=== PATIENT | female | born 1935 | race Caucasian/White ===

== ENCOUNTER 2022-11-27 06:42 | Observation (INO) ==
--- NOTE | 2022-11-02 16:12 | PAT Medication Instructions ---
Medication Instructions Date of Service November 02, 2022 Home Medications coenzyme Q10 100 mg capsule (CoQ-10) 100 mg PO QAM simvastatin 20 mg tablet 20 mg PO QPM acetaminophen 500 mg capsule 500 - 1,000 mg PO Q6H PRN amlodipine 5 mg tablet 5 mg PO QPM aspirin 81 mg tablet,delayed release 81 mg PO QPM atenolol 50 mg tablet 50 mg PO QPM calcium 600 mg capsule 600 mg PO QAM cholecalciferol (vitamin D3) 25 mcg (1,000 unit) tablet (Vitamin D3) 25 mcg PO QAM glucosam 750 mg-chondroi 100 mg-hyalur 1.65 mg-CF borate 108 mg tablet (Mapidy) 1 tab PO QAM magnesium oxide 400 mg PO QAM meloxicam 15 mg tablet 15 mg PO QAM ASK your surgeon for instructions meloxicam 15 mg tablet 15 mg PO QAM STOP taking 2 weeks before surgery (or as soon as possible if surgery is within 2 weeks) coenzyme Q10 100 mg capsule (CoQ-10) 100 mg PO QAM glucosam 750 mg-chondroi 100 mg-hyalur 1.65 mg-CF borate 108 mg tablet (Mapidy) 1 tab PO QAM DO NOT take the morning of surgery calcium 600 mg capsule 600 mg PO QAM cholecalciferol (vitamin D3) 25 mcg (1,000 unit) tablet (Vitamin D3) 25 mcg PO QAM magnesium oxide 400 mg PO QAM Take morning of surgery With a small sip of water, OTHERWISE NOTHING TO EAT OR DRINK AFTER MIDNIGHT: acetaminophen 500 mg capsule 500 - 1,000 mg PO Q6H PRN(if needed) Take evening before surgery simvastatin 20 mg tablet 20 mg PO QPM acetaminophen 500 mg capsule 500 - 1,000 mg PO Q6H PRN(if needed) amlodipine 5 mg tablet 5 mg PO QPM aspirin 81 mg tablet,delayed release 81 mg PO QPM (unless directed otherwise by surgeon) atenolol 50 mg tablet 50 mg PO QPM Other Notes If you have any questions please call us at [phone] or [phone] or [phone] or [phone]
--- NOTE | 2022-11-10 12:02 | Anesthesiology Consultation ---
Date of Service November 10, 2022 Assessment & Plan (1) Encounter for pre-operative examination: - anemia demonstrated on 10/26 and 11/10/22 labs. Awaiting PCP final clearance. PAT testing to be faxed to PCP. - cardiology clearance 11/09/22: "...BP elevated, pulse low. EKG independently reviewed and interpreted by myself today. Reveals NSR with PAC...R shoulder replacement...able to climb a flight of stairs without any issues...does get lightheaded at times. No syncope or LOC...swelling in the legs. Improves if she props her legs up...palpitations-improved. continue to monitor...cardiac clearance-very low risk (0.4%) based on Yury criteria. Is able to be cleared for low risk procedure from a cardiac standpoint..." - PCP clearance 10/26/22: "...preop...right shoulder replacement...complaints of generalized fatigue. labs will be updated for anemia...prior complaints of dyspnea on exertion with climbing usual steps at her home or otherwise...denies any acute chest pains or palpitations...preoperative clearance pending cardiac clearance..." - Outpatient joint assessment: Patient is currently scheduled for inpatient pathway. If re-evaluated and patient/surgeon requests outpatient pathway, patient is not recommended candidate for outpatient joint program from anesthesia standpoint. Chart Review Chart Review: Pending: Refer to Additional Notes / Consult section and Patient seen in Pre Admission Testing Teaching & Discussion Pre-Anesthesia Teaching/Discussion Notes: Instructed NPO after midnight before surgery, except medications with 15 cc of water. Medication instructions provided according to the PAT guidelines. History Surgery Operation Date: 11/27/22 07:15 Proposed Procedures p Right Reverse Total Shoulder Arthroplasty - Ziggy Millard MD Height/Weight Height: 5 ft 4 in Weight: 83.4 kg Allergies Allergy/AdvReac Type Severity Reaction Status Date / Time No Known Allergies Allergy Verified 11/02/22 15:06 Medications Home Medications Medication Instructions Recorded Confirmed Last Taken coenzyme Q10 100 mg capsule 100 mg PO QAM 02/26/18 11/02/22 02/25/18 07:00 (CoQ-10) simvastatin 20 mg tablet 20 mg PO QPM 02/26/18 11/02/22 03/06/18 21:00 acetaminophen 500 mg capsule 500 - 1,000 mg PO Q6H PRN Pain 11/02/22 11/02/22 Unknown amlodipine 5 mg tablet 5 mg PO QPM 11/02/22 11/02/22 Unknown aspirin 81 mg tablet,delayed 81 mg PO QPM 11/02/22 11/02/22 Unknown release atenolol 50 mg tablet 50 mg PO QPM 11/02/22 11/02/22 Unknown calcium 600 mg capsule 600 mg PO QAM 11/02/22 11/02/22 Unknown cholecalciferol (vitamin D3) 25 25 mcg PO QAM 11/02/22 11/02/22 Unknown mcg (1,000 unit) tablet (Vitamin D3) glucosam 750 mg-chondroi 100 1 tab PO QAM 11/02/22 11/02/22 Unknown mg-hyalur 1.65 mg-CF borate 108 mg tablet (Move Free Tizra) magnesium oxide 400 mg PO QAM 11/02/22 11/02/22 Unknown meloxicam 15 mg tablet 15 mg PO QAM 11/02/22 11/02/22 Unknown Past Medical History Medical History (Updated 11/10/22 @ 14:34 by Eulalia Doll PA-C) Anemia Hgb 10, PCP monitoring per records GERD (gastroesophageal reflux disease) OCCASIONAL - NO MEDS History of anemia History of COVID-19 2021>resolved Hyperlipidemia Hypertension controlled, stable per pt Ocular migraine last migraine was earlier today, states was the same as her typical ocular migraines and fully resolved Patient denies h/o stroke, seizures, heart attack, heart failure, DM, blood clots or blood transfusions. Exercise / Class Metabolic Activity II 4-5 Yardwork/Stairs/Walk up hill (denies chest discomfort or shortness of breath with 1 FOS) Past Family History Family History Grandmother Family history of diabetes mellitus PATERNAL Breast cancer PATERNAL Other No family history of adverse response to anesthesia Past Surgical History Surgical History (Updated 11/10/22 @ 12:46 by Eulalia Doll PA-C) History of appendectomy History of blepharoplasty bilat. History of breast biopsy rt>benign History of cataract surgery rt/left History of colonoscopy History of tonsillectomy and adenoidectomy History of tooth extraction History of total hip arthroplasty right/left 2018 SAB L3-L4 1 attempt. History of total knee replacement LEFT X2 right Past Anesthesia History No Hx of Anesthesia Complications and No Family Hx of Anesthesia Complications History of PONV No Hx of PONV and No Hx of Motion Sickness Social History Smoking Status: Never smoker Do You Dip or Chew Tobacco: No Hx Alcohol Use: No Hx Substance Use: No substance use type: does not use Review of Systems Snoring, denies witnessed apneas. Patient denies chest pain, shortness of breath, dyspnea on exertion, fever, chills, cough, wheezing, or palpitations. Physical Exam Vital Signs Vitals BP 121/70 P 64 TEMP 98 SP02 97% on RA RESP 17 Physical Patient resting comfortably in chair in NAD, alert and oriented, responding appropriately throughout visit Full cervical extension range of motion without pain TMD 3.5 finger breadths Mallampati Score 2 Dentition: removable lower and left upper side bridge, denies chipped or loose teeth, caps/crowns, implants Lungs: normal respiratory effort. Good air movement, clear throughout to auscultation, no adventitious breath sounds Cardiac: regular rate and rhythm, no murmurs noted Carotid arteries: negative bruit bilat Lab Results Anesthesia Preop Results Results Anesthesia Widget: WBC 5.29 K/ul (4.8-10.8) 11/10/22 Hgb 10.9 g/dl (12.0-16.0) L 11/10/22 Hct 34.2 % (37.0-47.0) L 11/10/22 Plt 265 K/uL (130-400) 11/10/22 PT 10.9 Seconds (9.0-12.0) 11/10/22 PTT 26.4 Seconds (21.0-31.0) 11/10/22 INR 1.0 (0.9-1.1) 11/10/22 Urine Color Yellow 11/10/22 Urine Appearance Clear (Clear) 11/10/22 Urine pH 5.0 (4.5-7.5) 11/10/22 Urine Specific Bagley 1.024 (1.000-1.030) 11/10/22 Urine Protein Negative (Negative) 11/10/22 Urine Glucose (UA) Negative (Negative) 11/10/22 Urine Ketones Trace (Negative) H 11/10/22 Urine Blood Negative (Negative) 11/10/22 Urine Nitrite Negative (Negative) 11/10/22 Urine Bilirubin Negative (Negative) 11/10/22 Urine Urobilinogen Negative (Negative) 11/10/22 Urine Leukocyte Esterase 2+ (Negative) H 11/10/22 Urine WBC (Auto) >30 /hpf (0-5) H 11/10/22 Urine RBC (Auto) 0-4 /hpf (0-4) 11/10/22 Urine Hyaline Casts (Auto) 1-5 /lpf (0-5) 11/10/22 Urine Epithelial Cells (Auto) >30 /lpf (0-5) H 11/10/22 Urine Bacteria (Auto) Negative (Negative) 11/10/22 Blood Type O Positive 11/10/22 Antibody Screen NEGATIVE 11/10/22 Testing Laboratory Results 10/26/2022 SODIUM: 139 POTASSIUM: 5 CHLORIDE: 105 CO2: 31 BUN: 18 CREATININE: 0.8 GLUCOSE: 108 Albumin: 4.1 Electrocardiogram Date: 11/10/22 NSR, rate [address] and T wave abnormality Chest X-Ray Date: 11/10/22 No acute process
--- NOTE | 2022-11-19 08:47 | History & Physical Report ---
Date of Service November 19, 2022 Assessment & Plan (1) Primary osteoarthritis, right shoulder: Plan: Treatment options discussed with patient. She is severe end-stage osteoarthritis right shoulder. She has failed conservative measures and like to proceed with surgical invention. Risks, benefits and alternatives to surgery including but not limited to infection, DVT, pain, stiffness, need for revision surgery, damage to blood vessels, damage to nerves, PE, , were discussed with the patient and they wish to proceed. Plan on right reverse total shoulder arthroplasty scheduled for the at [facility] with Dr. Millard. All questions answered. She will follow-up postop. History of Present Illness Chief Complaint: Right shoulder pain Primary Care Provider: Ravinder Aviles MD 87-year-old female with past medical history significant for hypertension, high cholesterol, anemia, ocular migraine who presents with ongoing right shoulder pain. Pain is interfering with her daily activities. She has failed conservative measures and would like to proceed with surgery. Patient denies headaches, sweats, fevers, chills, double vision, blurred vision, cough, sore throat, dysphagia, chest pain, sob, wheezing, n/v/d/c, numbness, tingling, fatigue, urinary symptoms, mood disorders. ROS positive for right shoulder pain and stiffness. Allergies Allergy/AdvReac Type Severity Reaction Status Date / Time No Known Allergies Allergy Verified 11/02/22 15:06 Home Medications Medication Instructions Recorded Confirmed Type coenzyme Q10 100 mg capsule 100 mg PO QAM 02/26/18 11/02/22 History (CoQ-10) simvastatin 20 mg tablet 20 mg PO QPM 02/26/18 11/02/22 History acetaminophen 500 mg capsule 500 - 1,000 mg PO Q6H PRN Pain 11/02/22 11/02/22 History amlodipine 5 mg tablet 5 mg PO QPM 11/02/22 11/02/22 History aspirin 81 mg tablet,delayed 81 mg PO QPM 11/02/22 11/02/22 History release atenolol 50 mg tablet 50 mg PO QPM 11/02/22 11/02/22 History calcium 600 mg capsule 600 mg PO QAM 11/02/22 11/02/22 History cholecalciferol (vitamin D3) 25 25 mcg PO QAM 11/02/22 11/02/22 History mcg (1,000 unit) tablet (Vitamin D3) glucosam 750 mg-chondroi 100 1 tab PO QAM 11/02/22 11/02/22 History mg-hyalur 1.65 mg-CF borate 108 mg tablet (Move Free Joint ozuke) magnesium oxide 400 mg PO QAM 11/02/22 11/02/22 History meloxicam 15 mg tablet 15 mg PO QAM 11/02/22 11/02/22 History Past Med/Surg History Medical History (Updated 11/19/22 @ 08:46 by Iain Giordano PA-C) Anemia Hgb 10, PCP monitoring per records GERD (gastroesophageal reflux disease) OCCASIONAL - NO MEDS History of anemia History of COVID-19 2021>resolved Hyperlipidemia Hypertension controlled, stable per pt Ocular migraine last migraine was earlier today, states was the same as her typical ocular migraines and fully resolved Surgical History (Updated 11/10/22 @ 12:46 by Eulalia Doll PA-C) History of appendectomy History of blepharoplasty bilat. History of breast biopsy rt>benign History of cataract surgery rt/left History of colonoscopy History of tonsillectomy and adenoidectomy History of tooth extraction History of total hip arthroplasty right/left 2017 SAB L3-L4 1 attempt. History of total knee replacement LEFT X2 right Family History Grandmother Family history of diabetes mellitus PATERNAL Breast cancer PATERNAL Other No family history of adverse response to anesthesia Social History Smoking Status: Never smoker Second Hand Exposure: Yes (sister smokes & will occas. visit); Do You Dip or Chew Tobacco: No; Hx Alcohol Use: No Hx Substance Use: No Preferred Language: Yakut Communication Ability: Effective Budget Clerk Required: No Beliefs That Will Affect Care: None marital status: Current Living Situation: Alone Feels Safe at Home: Yes Assistive Devices: Glasses Review of Systems All systems reviewed & are unremarkable except as noted in HPI & below Physical Exam Constitutional: well developed and well nourished; no acute distress Eyes: PERRL, conjunctivae normal, anicteric sclerae ENMT: external ear and nose normal, oropharynx normal Neck: trachea midline, no thyromegaly Respiratory: normal respiratory effort, lungs clear to auscultation Cardiovascular: RRR, no murmur, no edema Musculoskeletal: Right shoulder: Crepitation with range of motion. There is diffuse tenderness. She is active. Full range of motion. Forward lection of 80 degrees, abduction 80 degrees, external rotation 10 degrees. She has weakness with strength testing. 4+/5 external and internal rotation and abduction. Skin: no rashes, warm and dry Neurologic: patellar DTR's 2+ bilat, sensation intact Psychiatric: A+Ox3, euthymic affect Results & Data Diagnostic Findings Right shoulder radiographs demonstrate severe end-stage osteoarthritis right shoulder, [id number] glenohumeral joint. There is bone loss anterior glenoid. Calcifications of greater tuberosity consistent calcific tendinitis rotator cuff.
[~2022-11-27 06:42] MED LIST: ACETAMINOPHEN 500 MG TAB PO SCH; CeleBREX 200 MG CAP PO SCH; FAMOTIDINE 20 MG TAB PO SCH; GABAPENTIN 300 MG CAP PO SCH; LR 15ML/HR IV SCH; LR 60ML/HR IV SCH; METOCLOPRAMIDE HCL 10 MG TABLET PO SCH; TRANEXAMIC ACID 1,000 MG **IV Intra-op IV SCH; TRANEXAMIC ACID 1,000 MG **IV Pre-op IV SCH; ceFAZolin 2000MG 2,000 MG/15 ML SYR IV SCH; dexAMETHasone 4 MG TAB PO SCH
[2022-11-27] MEDS ORDERED: BUPIVACAINE 0.5 % 5 MG/1 ML PF 10ML VIAL ONE (07:05)
[2022-11-27] MEDS ORDERED: DEXAMETHASONE SOD INJ 4 MG/ML VIAL ONE (07:19)
[2022-11-27] MEDS ORDERED: LIDOCAINE 2% 2 ML VIAL/AMP(20MG/ML) INFIL ONE (07:19)
[2022-11-27] MEDS ORDERED: fentaNYL citrate PF 100 MCG/2 ML VIAL ONE (07:19)
[2022-11-27] MEDS ORDERED: PROPOFOL IV EMULSION 10 MG/ML 20 ML VIAL IV ONE (07:19)
[2022-11-27] MEDS ORDERED: ONDANSETRON INJ 2 MG/ML 2 ML VIAL ONE (07:19)
[2022-11-27] MEDS ORDERED: ROCURONIUM BROMIDE 10 MG/ML 5 ML VIAL IV ONE (07:19)
--- NOTE | 2022-11-27 07:27 | History & Physical Bridge Note ---
Date of Service November 27, 2022 History & Physical Bridge Note I have examined the patient, reviewed the History & Physical and in the interval since the performance of the History & Physical I have noted the following changes of clinical significance: no changes noted
[2022-11-27] MEDS ORDERED: fentaNYL citrate PF 100 MCG/2 ML VIAL IV PRN (08:18)
[2022-11-27] MEDS ORDERED: ONDANSETRON INJ 2 MG/ML 2 ML VIAL IV PRN ×2 (08:18→13:01)
[2022-11-27] MEDS ORDERED: ePHEDrine sulfate 50 MG/ML AMP IV PRN (08:18)
[2022-11-27] MEDS ORDERED: ATROPINE SULFATE 0.1 MG/ML 10ML SYR IV PRN (08:18)
[2022-11-27] MEDS ORDERED: SUGAMMADEX SODIUM 200 MG/2 ML VIAL IV ONE (11:43)
--- NOTE | 2022-11-27 12:01 | Operative Report ---
Post Operative Report Pre & Post Diagnosis Operation Date: 11/27/22 09:25 Pre-Op Diagnosis: Right Shoulder Osteoarthritis, calcific tendinitis, rotator cuff tendinopathy Post-Op Diagnosis: Right Shoulder Osteoarthritis, calcific tendinitis, rotator cuff tendinopathy, b iceps tendinopathy, loose bodies. I identified the patient and participated in the time-out.: Yes Procedure Operation Date: 11/27/22 09:25 Actual Procedures p Right Reverse Total Shoulder Arthroplasty(Right), excision calcium deposits, biceps tenodesis, excision loose bodies including large subcoracoid loose bodies.- Ziggy Millard MD Surgeon Ziggy Millard MD Scale Expert Portillo TAO Estimated Blood Loss 40 Findings Consistent with Post-Op Diagnosis Specimens Humeral head Drains 2 Hemovac Anesthesia Type General Regional Complications none Disposition Disposition: Recovery Room Indications 87-year-old female chronic progressive right shoulder pain failed conservative management. Patient has end-stage osteoarthritis with some bone loss on the glenoid side with type a concentric type wear pattern. Patient has large osteophytes. Patient has calcific tendinitis rotator cuff but has intact ro tator cuff but rotator cuff tendinopathy. Description of Procedure The patient was taken to the operating room and anesthetized under regional block and general anesthetic. The patient was positioned on the operating table in a 30 beachchair position with a towel roll under the medial border of the right scapula. The arm was draped free to be able to manipulate the shoulder as needed. The right upper extremity was prepped and draped in usual sterile fashion. Exam demonstrated 10 degrees external rotation with arm at side. 70 degrees abduction. 95 degrees forward flexion. [id number] crepitation.. An anterior deltopectoral approach was performed. A longitudinal incision was made in the deltopectoral interval. The skin was incised sharply. Subcutaneous flaps were elevated off the fascia. The cephalic vein was dissected out and retracted lateral with the deltoid. The clavipectoral fascia was divided at the lateral margin of the conjoined tendon and extended up to the CA ligament. The following findings were noted: The subscapularis tendon was intact. The biceps sheath had tenosynovitis extending from glenohumeral joint. The supraspinatus tendon had rotator cuff tendinopathy and thinning with calcium deposits on the bursal surface of the rotator cuff.. The upper centimeter of the pectoralis was released for inferior exposure. The biceps tendon findings demonstrated intact biceps tendon in the groove as the biceps observe more proximally and intra-articularly was widened with tendinopathy and there was tenosynovitis around the biceps.. the biceps tendon was tenodesed to the pectoralis tendon with #2 FiberWire. The proximal biceps was resected. The subscapularis tendon was taken down off the lesser tuberosity using a subperiosteal dissection. A #1 Vicryl traction suture was placed into the free end of the subscapularis tendon and capsule. The subscapular muscle fibers were split longitudinally at the level of the circumflex vessels. The circumflex vessels were identified and tied off with silk ties and divided laterally. A Kitner elevator was used to free up the inferior fibers of the subscapularis off of the capsule. The axillary nerve was identified with a tug test and protected with a blunt Valeriy retractor between the nerve and the capsule. The subscapularis tendon was then taken down off of the lesser tuberosity subperiosteally and subperiosteal dissection was performed along the neck of the humerus as the arm is gradually actually rotated exposing the humeral head. Retractors were readjusted and the inferior osteophytes were all resected using an artist chisel. There were very large irregular inferior osteophytes also lateral and superior osteophytes which were resected with a rongeur and artist chisel as well. A Corley elevator was used to assist in releasing the capsule of the neck of the humerus. The capsule was divided with Barker scissors down to the glenoid released off the anterior glenoid and the rotator interval was released to meet the capsular release and a 360 release of the subscapularis was accomplished. The supraspinatus tendon was released and the calcium deposits were resected the infraspinatus and teres Minor were preserved. A Fukuda retractor was placed into the joint retracting the humeral head posterior. Glenoid findings demonstrated concentric wear with large posterior osteophytes that were resected. There was complete eburnated bone with no articular cartilage remaining. There were large subcoracoid loose bodies which were removed. There were over 2 cm in size which were connected together with 2 large loose bodies.. The labrum and biceps tendon were resected. an anterior-inferior and posterior inferior capsular release were performed with electrocautery and a Corley elevator on bone with the axillary nerve protected inferiorly by the retractor. Attention was then taken to the humeral preparation. Humeral head was flattened with some bone loss and also a complete eburnated bone. The cutting guide was placed into the humeral head. It was positioned at 20 of retroversion. Oscillating saw was used to resect the humeral head giving the cut above the level of the posterior rotator cuff insertion site. The humerus was then prepared for the stem. I used the ascend flex stem from [employer]. The sizing broaches were used followed by trial broaches up to a size 6B long PTC stem which had the appropriate fit and fill. The appropriate sized cut protector was placed. The humerus was then retracted posterior to the glenoid. The glenoid was sized for a 25 mm baseplate. We had a blueprint CT scan preop templating with custom guide. The guide was positioned and the central pin was placed in the appropriate position. The reamer for the 25 mm baseplate was used. The reamer for the central boss was used. The depth gauge was used to measure for the central screw. The 25 mm perform baseplate with a 30 mm x 6.5 mm central screw was screwed into position. The base plate was transfixed with superior and inferior locking screws and anterior and posterior compression screws with stable fixation. Bone quality of the humerus was relatively soft and the bone quality the glenoid was hard. The fan reamer was used for the 39 millimeter glenoid sphere. After irrigation the 39 mm symmetrical glenoid sphere was impacted onto the baseplate and the security screw was tightened. Attention was taken back to the humerus. The cut protector was removed and the +0 high offset humeral tray trial was assembled to the trial stem rotated appropriately to get bony coverage and then screwed in position. A trial reduction was performed. A 9 mm x 39 mm reversed trial insert demonstrated good stability and no shuck. The trials were removed. 3 drill holes are made into the harder bone in the bicipital groove area and 3 #5 FiberWire sutures were placed transosseously. The canal was irrigated with pulsatile saline solution. The final component was assembled. The final component was [employer] ascend Flex size 6B long PTC stem. This was then impacted into the humerus with a tight press-fit. It was reduced to the glenoid sphere. Stability was verified. Subscapularis was repaired with the #5 FiberWire sutures using Eligio-Gregorio suture technique. Lateral row soft tissue repair was performed with #2 FiberWire [id number] sutures. The pectoralis was repaired with #2 FiberWire [id number] sutures reinforcing the biceps tendon tenodesis. The arm was taken through a range of motion which demonstrated 130 degrees forward flexion 90 degrees abduction and 40 degrees external rotation without any tension on repair. The implant was stable through the range of motion tested. The wound was copiously irrigated. 2 Hemovac drains were placed. The deltopectoral interval was closed with [id number] #1 Vicryl sutures. The subcutaneous tissues were closed with 2-0 Vicryl sutures. The ski n was closed with dusty. Sterile dressings were applied and a shoulder immobilizer. Portillo TAO, my physician data analysis assistant assisted in the procedure to the entire procedure including patient positioning arm positioning prepping and draping soft tissue retraction instrument management suture management and performed the subcutaneous and skin closure and will participate in the postoperative care of the patient. I attest to the content of the Intraoperative Record and any orders documented therein. Any exceptions are noted below.
--- NOTE | 2022-11-27 12:30 | XRay Report ---
XR shoulder LT min 2V routine HISTORY: 87 years-old Female Post shoulder surgery right shoulder arthroplasty COMPARISON: 11/10/2022 TECHNIQUE: 2 views of the right shoulder FINDINGS: Reverse right shoulder total joint arthroplasty demonstrates satisfactory alignment. Overlying skin s taples are present along with expected postoperative soft tissue swelling and surgical drainage silvia ter. No acute fracture or unexpected opaque foreign body identified. Punctate radiodense foci are not ed superolateral to the shoulder suggestive of calcifications. IMPRESSION: Satisfactory alignment of the right shoulder arthroplasty. ACT 112: Negative or not required by law. The above report was generated using voice recognition software. It may contain grammatical, syntax o r spelling errors. Electronically signed by: Jose Dove M.D. 11/27/2022 12:29 PM
[2022-11-27] MEDS ORDERED: bisacodyL 10 MG SUPP PR PRN (13:01)
[2022-11-27] MEDS ORDERED: oxyCODONE HCL IR 5 MG TAB (IMMEDIATE RELEASE) PO PRN (13:01)
[2022-11-27] MEDS ORDERED: NALOXONE HCL 0.4 MG/1 ML VIAL/CARP IV PRN (13:01)
[2022-11-27] MEDS ORDERED: METOCLOPRAMIDE HCL INJ 5 MG/ML 2 ML VIAL IV PRN (13:01)
[2022-11-27] MEDS ORDERED: HYDROmorphone INJ 0.5 MG/0.5 ML SYR IV PRN (13:01)
[2022-11-27] MEDS ORDERED: MAGNESIUM HYDROXIDE SUSP 30 ML UDC PO PRN (13:01)
[2022-11-27] MEDS: SODIUM CHLORIDE 0.9% 1000ML 1,000 ML IV SCH ×2 (13:38→23:17)
[2022-11-27] MEDS: ACETAMINOPHEN 500 MG TAB PO SCH ×2 (14:19→21:55)
--- NOTE | 2022-11-27 15:29 | Hospitalist Consultation ---
Date of Consultation November 27, 2022 Assessment & Plan (1) Primary osteoarthritis, right shoulder: s/p right reverse total shoulder arthroplasty Pain/bowel/VTE management per primary orthopedic team (2) Systolic murmur: Recommended her to follow up with her PCP regarding this. (3) Hyperlipidemia: Continue simvastatin (4) Hypertension: Continue atenolol with hold parameters Agree with holding amlodipine until post op day 1 Plan Thank you for the consult. We will follow along with you with post op labs to be performed tomorrow. History of Present Illness Reason for Consultation: post op management Attending Physician: Ziggy Millard MD History of Present Illness Tanesha Velez is an 87 year old female POD#0 from right reverse ttal shoulder arthroplasty. Estimated blood loss 40ml. No post operative concerns or questions from the patient. No history of heart attack or stroke. Allergies Allergy/AdvReac Type Severity Reaction Status Date / Time No Known Allergies Allergy Verified 11/27/22 07:19 Home Medications Medication Instructions Recorded Confirmed Type coenzyme Q10 100 mg capsule 100 mg PO QAM 02/26/18 11/27/22 History (CoQ-10) simvastatin 20 mg tablet 20 mg PO QPM 02/26/18 11/27/22 History acetaminophen 500 mg capsule 500 - 1,000 mg PO Q6H PRN Pain 11/02/22 11/27/22 History amlodipine 5 mg tablet 5 mg PO QPM 11/02/22 11/27/22 History aspirin 81 mg tablet,delayed 81 mg PO QPM 11/02/22 11/27/22 History release atenolol 50 mg tablet 50 mg PO QPM 11/02/22 11/27/22 History calcium 600 mg capsule 600 mg PO QAM 11/02/22 11/27/22 History cholecalciferol (vitamin D3) 25 25 mcg PO QAM 11/02/22 11/27/22 History mcg (1,000 unit) tablet (Vitamin D3) glucosam 750 mg-chondroi 100 1 tab PO QAM 11/02/22 11/27/22 History mg-hyalur 1.65 mg-CF borate 108 mg tablet (CloudSponge) magnesium oxide 400 mg PO QAM 11/02/22 11/27/22 History meloxicam 15 mg tablet 15 mg PO QAM 11/02/22 11/27/22 History acetaminophen 500 mg tablet 1,000 mg PO Q8 #60 tabs 11/27/22 Rx (Tylenol Extra Strength) Patient History Medical History (Updated 11/28/22 @ 06:40 by Barrera Steinberg MD) Anemia Hgb 10, PCP monitoring per records GERD (gastroesophageal reflux disease) OCCASIONAL - NO MEDS History of anemia History of COVID-19 2021>resolved Hyperlipidemia Hypertension controlled, stable per pt Ocular migraine last migraine was earlier today, states was the same as her typical ocular migraines and fully resolved Surgical History History of appendectomy History of blepharoplasty bilat. History of breast biopsy rt>benign History of cataract surgery rt/left History of colonoscopy History of tonsillectomy and adenoidectomy History of tooth extraction History of total hip arthroplasty right/left 2017 SAB L3-L4 1 attempt. History of total knee replacement LEFT X2 right Family History Grandmother Family history of diabetes mellitus PATERNAL Breast cancer PATERNAL Other No family history of adverse response to anesthesia Social History Smoking Status: Never smoker Second Hand Exposure: Yes (sister smokes & will occas. visit); Do You Dip or Chew Tobacco: No; Hx Alcohol Use: No Hx Substance Use: No Preferred Language: Latvian Communication Ability: Effective Naval Architect Required: No Beliefs That Will Affect Care: None marital status: Current Living Situation: Alone Feels Safe at Home: Yes Safety Concerns: Feels Safe At This Time Assistive Devices: None Assistive Devices Comment: reading glasses, partial plates Review of Systems Review of Systems: All systems reviewed & are unremarkable except as noted in HPI & below Physical Exam Constitutional: WD/WN, vitals as above Eyes: PERRL, conjunctivae normal, anicteric sclerae Respiratory: normal respiratory effort, lungs clear to auscultation Cardiovascular: Rate/Rhythm: regular rate and regular rhythm Heart Sounds: + murmur (3/6 RUSB YOMI) Extremities: normal capillary refill; no calf tenderness and no pedal edema Gastrointestinal (Abdomen): normal bowel sounds, soft, nontender, no hepatosplenomegaly Skin: no rashes, warm and dry Neurologic: awake; not confused Psychiatric: A+Ox3, euthymic affect Results & Data Results & Data Vital Signs (Past 12 Hours) Vital Signs Temp Pulse Pulse Resp BP Pulse Ox O2 Del Method 11/27/22 15:01 36.2 C L 70 16 126/62 93 Room Air 11/27/22 14:01 36.3 C L 67 16 124/65 93 Room Air 11/27/22 13:31 36.4 C L 79 16 131/77 92 Room Air 11/27/22 13:00 36.3 C L 70 16 131/71 92 Room Air 11/27/22 12:30 36.4 C L 69 19 139/65 96 Oxymask 11/27/22 12:20 65 25 H 130/67 99 Oxymask 11/27/22 12:10 69 23 136/66 97 Oxymask 11/27/22 12:00 36.1 C L 71 16 136/70 97 Oxymask 11/27/22 07:15 36.5 C 51 L 18 153/96 H 98 Room Air O2 Flow Rate 11/27/22 15:01 11/27/22 14:01 11/27/22 13:31 11/27/22 13:00 11/27/22 12:30 2 11/27/22 12:20 5 11/27/22 12:10 7 11/27/22 12:00 9 11/27/22 07:15 PG Care Time/CCT Total # of Minutes Spent Total Time Spent with Patient: Total time spent is greater than 50% in coordination of care (as documented) at patient's floor/unit and/or counseling patient: Coding Level of Care Code 58683 IN/OBS CONSULT LVL 3,45M Diagnoses Primary osteoarthritis, right shoulder M19.011 Systolic murmur R01.1 Hyperlipidemia E78.5 Hypertension I10
--- NOTE | 2022-11-27 15:40 | Anesthesiology Progress Note ---
Date of Service November 27, 2022 Anesthesia Post Procedure Vital Signs Vital Signs: Temp Pulse Pulse Resp BP Pulse Ox O2 Del Method 11/27/22 15:01 36.2 C L 70 16 126/62 93 Room Air 11/27/22 14:01 36.3 C L 67 16 124/65 93 Room Air 11/27/22 13:31 36.4 C L 79 16 131/77 92 Room Air 11/27/22 13:00 36.3 C L 70 16 131/71 92 Room Air 11/27/22 12:30 36.4 C L 69 19 139/65 96 Oxymask 11/27/22 12:20 65 25 H 130/67 99 Oxymask 11/27/22 12:10 69 23 136/66 97 Oxymask 11/27/22 12:00 36.1 C L 71 16 136/70 97 Oxymask 11/27/22 07:15 36.5 C 51 L 18 153/96 H 98 Room Air O2 Flow Rate 11/27/22 15:01 11/27/22 14:01 11/27/22 13:31 11/27/22 13:00 11/27/22 12:30 2 11/27/22 12:20 5 11/27/22 12:10 7 11/27/22 12:00 9 11/27/22 07:15 Transfer of Care Handoff Completed per policy Notes Mental Status: alert / awake / arousable and participated in evaluation Patient Amnestic to Procedure: Yes Nausea / Vomiting: adequately controlled Pain: adequately controlled Airway Patency, RR, SpO2: stable & adequate BP & HR: stable & adequate Hydration State: stable & adequate Anesthetic Complications: no major complications apparent and Pt Satisfied with anesthetic care
[2022-11-27] MEDS: ceFAZolin 2000MG 2,000 MG/15 ML SYR IV SCH (17:38)
[2022-11-27] MEDS: DOCUSATE SODIUM 100 MG CAP PO SCH (20:11)
[2022-11-27] MEDS ORDERED: SENNA 8.6 MG TAB PO SCH (21:00)
[2022-11-27] MEDS ORDERED: ASPIRIN 81 MG ECTAB PO SCH (21:00)
[2022-11-27] MEDS ORDERED: ATENOLOL 50 MG TABLET PO SCH (21:00)
[2022-11-27] MEDS ORDERED: SIMVASTATIN 20 MG TAB PO SCH (21:00)
[2022-11-28] MEDS: ceFAZolin 2000MG 2,000 MG/15 ML SYR IV SCH (01:38)
[2022-11-28] MEDS: ACETAMINOPHEN 500 MG TAB PO SCH (05:05)
[2022-11-28 07:33] LABS: Basophils # (auto) 0.01 K/uL (0-0.2); Basophils % (auto) 0.1 %; Hematocrit (blood only) 33.6 % (37.0-47.0); Hemoglobin 10.8 g/dl (12.0-16.0); Immature Granulocytes # (auto) 0.05 K/uL (0.01-0.20); Immature Granulocytes % (auto) 0.4 %; Lymphocytes # (auto) 1.23 K/uL (1.2-3.4); Lymphocytes % (auto) 8.9 %; Mean Corpuscular Hemoglobin 28.7 pg (25.0-34.0); Mean Corpuscular Hgb Conc 32.1 g/dL (32.0-36.0); Mean Corpuscular Volume 89.4 fL (80.0-100.0); Mean Platelet Volume 10.8 fL (9.4-12.4); Monocytes # (auto) 0.31 K/uL (0.11-0.59); Monocytes % (auto) 2.3 %; Neutrophils # (auto) 12.17 K/uL (1.40-6.50); Neutrophils % (auto) 88.3 %; Platelet Count 310 K/uL (130-400); RDW Coefficient of Variation 12.7 % (11.5-14.5); RDW Standard Deviation 41.2 fL (36.4-46.3); Red Blood Count 3.76 M/uL (4.20-5.40); White Blood Count 13.77 K/ul (4.8-10.8)
[2022-11-28 08:00] LABS: BUN Creatinine Ratio 20.5 (10-20); Calcium 8.9 mg/dl (8.6-10.3); Creatinine Clr Calc Pharmacy 49.5 ml/min; Est GFR (African American) 73.5 ml/min; Est GFR (Non-African American) 63.4 ml/min; Potassium 4.4 mmol/L (3.5-5.1)
[2022-11-28] MEDS ORDERED: MAGNESIUM OXIDE 400 MG TAB PO SCH (09:00)
[2022-11-28] MEDS ORDERED: CHOLECALCIFEROL 1,000 UNITS 25 MCG TAB PO SCH (09:00)
[2022-11-28] MEDS ORDERED: CALCIUM 600MG + VIT D 400 IU TAB PO SCH (09:00)
[2022-11-28] MEDS ORDERED: MULTIVITAMIN TAB PO SCH (09:00)
[2022-11-28] MEDS: DOCUSATE SODIUM 100 MG CAP PO SCH (09:05)
--- NOTE | 2022-11-28 09:30 | Orthopedic Progress Note ---
Date of Service November 28, 2022 Assessment & Plan (1) Primary osteoarthritis, right shoulder: Plan: Postop day 1 status post right reverse total shoulder arthroplasty PT/OT protocols. Nonweightbearing right upper extremity Plan for dressing change and Hemovac removal. DVT prophylaxis-aspirin p.o. daily, SCDs Pain management as written. DC planning-patient is planning for discharge to home with outpatient PT. Plan for discharge to home today. Admission and Anticipated Discharge Date Admission Date: November 27, 2022 Subjective Postop day 1 Patient sitting up in bed awake and alert. Family is present. Patient feels well. Pain is controlled. She is hoping to go home today Physical Exam Physical Exam: Dressings are clean, dry, and intact. Sling is in place. She continues to have good pain control from her nerve block. She has good range of motion of her fingers at this time but continues to have weakness as far as strength with her hand. She does have range of motion of her wrist. She continues to have some decreased sensation mainly in the thumb and index fingers with [id number] in the remaining 3. Capillary refill is less than 2 seconds. Results & Data Vital Signs (Past 12 Hours) Vital Signs Temp Pulse Pulse Resp BP Pulse Ox O2 Del Method 11/28/22 08:06 36.9 C 64 16 125/70 92 Room Air 11/28/22 03:16 36.7 C 68 16 138/76 93 Room Air 11/27/22 22:55 36.6 C 73 16 131/78 92 Room Air Laboratory Results Laboratory Results WBC 13.77 K/ul (4.8-10.8) H 11/28/22 06:34 RBC 3.76 M/uL (4.20-5.40) L 11/28/22 06:34 Hgb 10.8 g/dl (12.0-16.0) L 11/28/22 06:34 Hct 33.6 % (37.0-47.0) L 11/28/22 06:34 MCV 89.4 fL (80.0-100.0) 11/28/22 06:34 MCH 28.7 pg (25.0-34.0) 11/28/22 06:34 MCHC 32.1 g/dL (32.0-36.0) 11/28/22 06:34 RDW Std Deviation 41.2 fL (36.4-46.3) 11/28/22 06:34 RDW Coeff of Trevon 12.7 % (11.5-14.5) 11/28/22 06:34 Plt Count 310 K/uL (130-400) 11/28/22 06:34 MPV 10.8 fL (9.4-12.4) 11/28/22 06:34 Immature Gran % (Auto) 0.4 % 11/28/22 06:34 Neut % (Auto) 88.3 % 11/28/22 06:34 Lymph % (Auto) 8.9 % 11/28/22 06:34 [place] % (Auto) 2.3 % 11/28/22 06:34 Eos % (Auto) 0.0 % 11/28/22 06:34 Baso % (Auto) 0.1 % 11/28/22 06:34 Neut # (Auto) 12.17 K/uL (1.40-6.50) H 11/28/22 06:34 Lymph # (Auto) 1.23 K/uL (1.2-3.4) 11/28/22 06:34 [place] # (Auto) 0.31 K/uL (0.11-0.59) 11/28/22 06:34 Eos # (Auto) 0.00 K/uL (0-0.50) 11/28/22 06:34 Baso # (Auto) 0.01 K/uL (0-0.2) 11/28/22 06:34 Immature Gran # (Auto) 0.05 K/uL (0.01-0.20) 11/28/22 06:34 Sodium 135 mmol/L (136-145) L 11/28/22 06:34 Potassium 4.4 mmol/L (3.5-5.1) 11/28/22 06:34 Chloride 105 mmol/L (98-107) 11/28/22 06:34 Carbon Dioxide 24 mmol/L (21-32) 11/28/22 06:34 Anion Gap 6 (3-11) 11/28/22 06:34 BUN 17 mg/dl (6-23) 11/28/22 06:34 Creatinine 0.83 mg/dl (0.6-1.2) 11/28/22 06:34 Est Cr Clr Drug Dosing 49.5 ml/min 11/28/22 06:34 Est GFR ( Amer) 73.5 ml/min 11/28/22 06:34 Est GFR (Non-Af Amer) 63.4 ml/min 11/28/22 06:34 BUN/Creatinine Ratio 20.5 (10-20) H 11/28/22 06:34 Glucose 166 mg/dl (70-99(Fasting)) H 11/28/22 06:34 Calcium 8.9 mg/dl (8.6-10.3) 11/28/22 06:34 Impressions Shoulder X-Ray 11/27/22 12:05 XR shoulder LT min 2V routine HISTORY: 87 years-old Female Post shoulder surgery right shoulder arthroplasty COMPARISON: 11/10/2022 TECHNIQUE: 2 views of the right shoulder FINDINGS: Reverse right shoulder total joint arthroplasty demonstrates satisfactory alignment. Overlying skin dusty are present along with expected postoperative soft tissue swelling and surgical drainage catheter. No acute fracture or unexpected opaque foreign body identified. Punctate radiodense foci are noted superolateral to the shoulder suggestive of calcifications. IMPRESSION: Satisfactory alignment of the right shoulder arthroplasty. ACT 112: Negative or not required by law. The above report was generated using voice recognition software. It may contain grammatical, syntax or spelling errors. Electronically signed by: Jose Dove M.D. 11/27/2022 12:29 PM
--- NOTE | 2022-11-28 13:16 | Hospitalist Progress Note ---
Date of Service November 28, 2022 Assessment & Plan (1) Primary osteoarthritis, right shoulder: Plan: s/p right reverse total shoulder arthroplasty. Postoperative day #1. Management per primary team (2) Systolic murmur: Plan: Recommended her to follow up with her PCP regarding this. (3) Hyperlipidemia: Plan: Stable. Continue simvastatin (4) Hypertension: Plan: Stable. Continue atenolol. Resume amlodipine at discharge Plan Home today, November 28, per primary service. She is medically stable Admission and Anticipated Discharge Date Admission Date: November 27, 2022 Subjective Alert and oriented. No apparent distress. Vital signs stable. Laboratory studies reviewed and unremarkable. Postoperative day #1 after right shoulder arthroplasty Review of Systems Review of Systems: Constitutional-no fever or chills ENT-no blurred vision, no double vision, no epistaxis, no sore throat Respiratory-no cough, no wheezing, no shortness of breath Cardiac-no palpitations, no chest pain, no syncope GI-no nausea, vomiting, diarrhea, melena, hematochezia -no urinary retention, no urinary incontinence, no dysuria, no hematuria Musculoskeletal-postoperative right shoulder discomfort and limited range of motion as expected Skin-no bruising, no rashes, no pruritus Neuro-no isolated weakness, no paresthesia, no weakness Psych-no depression, no anxiety Physical Exam Physical Exam: General-alert and oriented x3, no fevers, no chills HEENT-head atraumatic and normocephalic, pupils equal and reactive to light, extraocular muscles intact Neck-no lymphadenopathy or thyromegaly, trachea midline Chest-clear to auscultation percussion. No rales wheezing or rhonchi Cardiac-regular rate and rhythm, normal S1 and S2 Abdomen-normal bowel sounds, nontender, no hepatosplenomegaly Extremities-drain remains in place in the right shoulder. This will be removed prior to discharge. Surgical site right shoulder clean and dry Neuro-cranial nerves II through XII intact, motor and sensory function within normal limits, strength symmetrical , no focal deficits Psych-normal affect, normal mood Results & Data Results & Data Vital Signs (Past 12 Hours) Vital Signs Temp Pulse Pulse Resp BP Pulse Ox O2 Del Method 11/28/22 11:24 36.9 C 64 68 16 125/70 92 11/28/22 08:06 36.9 C 64 16 125/70 92 Room Air 08/22/23 03:16 36.7 C 68 16 138/76 93 Room Air Laboratory Results 11/28/22 06:34 11/28/22 06:34 PG Care Time/CCT Total # of Minutes Spent Total Time Spent with Patient: Total time spent is greater than 50% in coordination of care (as documented) at patient's floor/unit and/or counseling patient: Coding Level of Care Code 13780 SUB INP/OBS CARE 2/35MIN Diagnoses Primary osteoarthritis, right shoulder M19.011 Systolic murmur R01.1 Hyperlipidemia E78.5 Hypertension I10
--- NOTE | 2022-11-28 19:32 | Discharge Summary ---
Date of Service November 28, 2022 Admission HPI Per Admitting Provider 87-year-old female with past medical history significant for hypertension, high cholesterol, anemia, ocular migraine who presents with ongoing right shoulder pain. Pain is interfering with her daily activities. She has failed conservative measures and would like to proceed with surgery. Patient denies headaches, sweats, fevers, chills, double vision, blurred vision, cough, sore throat, dysphagia, chest pain, sob, wheezing, n/v/d/c, numbness, tingling, fatigue, urinary symptoms, mood disorders. ROS positive for right shoulder pain and stiffness. Admission Exam Per Admitting Provider Constitutional: well developed and well nourished; no acute distress Eyes: PERRL, conjunctivae normal, anicteric sclerae ENMT: external ear and nose normal, oropharynx normal Neck: trachea midline, no thyromegaly Respiratory: normal respiratory effort, lungs clear to auscultation Cardiovascular: RRR, no murmur, no edema Musculoskeletal: Right shoulder: Crepitation with range of motion. There is diffuse tenderness. She is active. Full range of motion. Forward lection of 80 degrees, abduction 80 degrees, external rotation 10 degrees. She has weakness with strength testing. 4+/5 external and internal rotation and abduction. Skin: no rashes, warm and dry Neurologic: patellar DTR's 2+ bilat, sensation intact Psychiatric: A+Ox3, euthymic affect Principal Diagnosis right shoulder osteoarthritis Discharge Exam Dressings are clean, dry, and intact. Sling is in place. She continues to have good pain control from her nerve block. She has good range of motion of her fingers at this time but continues to have weakness as far as strength with her hand. She does have range of motion of her wrist. She continues to have some decreased sensation mainly in the thumb and index fingers with [id number] in the remaining 3. Capillary refill is less than 2 seconds Discharge Data Allergies Allergy/AdvReac Type Severity Reaction Status Date / Time No Known Allergies Allergy Verified 11/27/22 07:19 Consultations 11/22/22 16:10 Consult Hospitalist Routine Procedures Performed Operation Date: 11/27/22 09:25 Actual Procedures p Right Reverse Total Shoulder Arthroplasty(Right) - Ziggy Millard MD Ordered Studies 11/27/22 05:00 US - OR guided needle placemen Routine Hospital Course (1) Primary osteoarthritis, right shoulder: Postop day 1 status post right reverse total shoulder arthroplasty PT/OT protocols. Nonweightbearing right upper extremity Plan for dressing change and Hemovac removal. DVT prophylaxis-aspirin p.o. daily, SCDs Pain management as written. DC planning-patient is planning for discharge to home with outpatient PT. Plan for discharge to home today. Lab Results 11/28/22 11/28/22 Range/Units 06:34 06:34 WBC 13.77 H (4.8-10.8) K/ul RBC 3.76 L (4.20-5.40) M/uL Hgb 10.8 L (12.0-16.0) g/dl Hct 33.6 L (37.0-47.0) % MCV 89.4 (80.0-100.0) fL MCH 28.7 (25.0-34.0) pg MCHC 32.1 (32.0-36.0) g/dL RDW Std Deviation 41.2 (36.4-46.3) fL RDW Coeff of Trevon 12.7 (11.5-14.5) % Plt Count 310 (130-400) K/uL MPV 10.8 (9.4-12.4) fL Immature Gran % (Auto) 0.4 % Neut % (Auto) 88.3 % Lymph % (Auto) 8.9 % [place] % (Auto) 2.3 % Eos % (Auto) 0.0 % Baso % (Auto) 0.1 % Neut # (Auto) 12.17 H (1.40-6.50) K/uL Lymph # (Auto) 1.23 (1.2-3.4) K/uL [place] # (Auto) 0.31 (0.11-0.59) K/uL Eos # (Auto) 0.00 (0-0.50) K/uL Baso # (Auto) 0.01 (0-0.2) K/uL Immature Gran # (Auto) 0.05 (0.01-0.20) K/uL Sodium 135 L (136-145) mmol/L Potassium 4.4 (3.5-5.1) mmol/L Chloride 105 (98-107) mmol/L Carbon Dioxide 24 (21-32) mmol/L Anion Gap 6 (3-11) BUN 17 (6-23) mg/dl Creatinine 0.83 (0.6-1.2) mg/dl Est Cr Clr Drug Dosing 49.5 ml/min Est GFR ( Amer) 73.5 ml/min Est GFR (Non-Af Amer) 63.4 ml/min BUN/Creatinine Ratio 20.5 H (10-20) Glucose 166 H (70-99(Fasting)) mg/dl Calcium 8.9 (8.6-10.3) mg/dl Total Time Total Time Spent Total Time Spent (In Minutes): 20 Discharge Plan Discharge Items Patient Disposition: Home - Self-Care Reason For Visit: Right Shoulder Osteoarthritis Discharge Diagnosis: Right shoulder osteoarthritis Activity: Per Instructions section Non-emergency contact: Surgeon Call non-emergency contact if: you have any medication questions, your pain is concerning for you, your temperature is above 101, your wound has increased redness and your wound has increased drainage Follow-up/Referrals: Ziggy Millard MD [Surgeon] - (Follow-up with Dr. Millard or his PA in 2 weeks from the day of surgery for your first postoperative visit.) Ravinder Aviles MD [Primary Care Provider] - 12/18/22 3:00 pm Diet: Regular Addtl Attending Provider Instructions: ACTIVITY RECOMMENDATIONS: SELF CARE INSTRUCTIONS AFTER TOTAL SHOULDER ARTHROPLASTY REVERSE A. You may do daily exercises as taught in physical therapy while in hospital. No lifting with the operative arm. B. You are to wear your sling/immobilizer at all times EXCEPT when performing your daily exercises and for hygiene purposes. C. You may perform dry, daily dressing changes. Please keep your incision covered. You may shower 48 hours after surgery. Do not apply soap or any ointment/lotions directly over incision. Do not soak incision in bath tub/swimming pool. D. You may use ice as needed to operative shoulder. SPECIAL CARE INSTRUCTIONS: VERY IMPORTANT TO READ AND REVIEW A. There are a few signs you need to watch for after you are home. Call [facility] at [phone] if you experience any of the followin. Increased severe shoulder pain. Some pain is expected especially when you exercise. 2. Increased swelling in you shoulder or arm; pain or swelling in either upper extremity. 3. Any fluid drainage from the incision. 4. Shortness of breath or chest pain. B. Please call [facility] at [phone] if you have any questions or concerns about your operation or recovery. C. Call your physician if: 1. Temperature is greater than 101 degrees (F). 2. Pain is not relieved by prescribed pain medications. 3. Increase drainage or redness from incision. 4. Unanswered questions or concerns. FOLLOW UP VISIT: Please call [facility] at [phone] to schedule a follow up appointment with Dr. Millard or his PA in 12-14 days from your surgery date. Stand-Alone Forms: My [facility] [place], Smoking Cessation Medications and DC Order Prescriptions: New acetaminophen [Tylenol Extra Strength] 500 mg Tablet 1,000 mg PO Q8 Qty: 60 0RF polyethylene glycol 3350 [Miralax] 17 gram powder in packet 17 g PO DAILY PRN (Reason: constipation) Qty: 5 0RF oxycodone 5 mg tablet 5 mg PO Q4H MDD 6 PRN (Reason: pain) Qty: 30 0RF Continued simvastatin 20 mg Tablet 20 mg PO QPM coenzyme Q10 [CoQ-10] 100 mg Capsule 100 mg PO QAM calcium 600 mg Capsule 600 mg PO QAM amlodipine 5 mg Tablet 5 mg PO QPM aspirin 81 mg Tablet,Delayed Release (Dr/Ec) 81 mg PO QPM atenolol 50 mg Tablet 50 mg PO QPM cholecalciferol (vitamin D3) [Vitamin D3] 25 mcg (1,000 unit) Tablet 25 mcg PO QAM magnesium oxide 400 mg magnesium Capsule 400 mg PO QAM [facility] 750 mg-100 mg- 1.65 mg-108 mg Tablet 1 tab PO QAM Discontinued meloxicam 15 mg Tablet 15 mg PO QAM acetaminophen [Tylenol Extra Strength] 500 mg Capsule 500 - 1,000 mg PO Q6H PRN (Reason: Pain) Discharge Orders: Discharge Order (Routine); Ordered 11/28/22 Ordered By: Jacob Villalobos Admission Data Admit Date/Time: 11/27/22 12:05 Attending Provider: Ziggy Millard Admit Provider: Ziggy Millard Primary Care Provider: Ravinder Aviles Other Providers: Barrera Atkinson Other Interventions: Discharge Summary Assessment (RN) Last Done: 11/28/22 11:24
[2022-11-28] MEDS ORDERED: amLODIPine BESYLATE 5 MG TAB PO SCH (21:00)
== END 2022-11-28 12:12 | disposition home or self-care (01) ==
LOC: ASU 06:42 → 3W 06:42